=== PATIENT | male | born 1940 | race Caucasian/White ===

== ENCOUNTER 2017-11-10 22:19 | Inpatient (IN) | payer MEDICARE, OTHER ==
[~2017-11-10] VITALS: Ht 177.8 cm; Wt 81.2 kg
[2017-11-10 22:24] VITALS: BP 139/64
[2017-11-10] MEDS ORDERED: METFORMIN HCL500 MG PO (22:27)
[2017-11-10] MEDS ORDERED: LISINOPRIL10 MG PO (22:27)
[2017-11-10 23:04] LABS: ABSOLUTE LYMPHOCYTES 1.6 thou/uL (0.8-5.3); ABSOLUTE NEUTROPHILS 7.9 thou/uL (1.6-8.1); BASOPHILS 0.4 %; HEMATOCRIT 37.7 % (42.0-52.0); HEMOGLOBIN 12.4 gm/dL (14.0-18.0); LYMPHOCYTES 14.9 %; MCH 26.1 pg (26.0-34.0); MCHC 32.9 g/dL (28.0-37.0); MCV 79.3 fL (80.0-100.0); MONOCYTES 9.8 %; MPV 6.6 fl. (7.2-11.1); NUCLEATED RBCS 0 /100WBC; PLATELET COUNT* 208 thou/uL (150-400); POLYS 74.9 %; RBC 4.75 mil/uL (4.50-6.00); RDW-CV 16.1 % (10.5-14.5); WBC 10.5 thou/uL (4.0-11.0)
[2017-11-10 23:14] LABS: APTT 33.5 Seconds (25.0-31.3); INR 1.2
[2017-11-10 23:20] LABS: ANION GAP 5 mmol/L (7-16); BUN 21 mg/dL (7-18); CALCIUM 8.3 mg/dL (8.5-10.1); CHLORIDE 101 mmol/L (98-107); CO2 28 mmol/L (21-32); CREATININE 0.9 mg/dL (0.6-1.3); GLUCOSE 177 mg/dL (70-99); POTASSIUM 3.3 mmol/L (3.5-5.1); SODIUM 134 mmol/L (136-145)
[2017-11-10 23:27] LABS: ALBUMIN 3.3 g/dL (3.4-5.0); ALKALINE PHOSPHATASE 66 U/L (46-116); CK-MB MASS < 0.5 ng/mL (<0.5-3.6); NT-PRO BRAIN NAT PEPTIDE 3228 pg/mL (<300); SGOT 10 U/L (15-37); SGPT 17 U/L (30-65); TOTAL PROTEIN 6.9 g/dL (6.4-8.2); TROPONIN-I LEVEL <0.06 ng/mL (<0.06)
[2017-11-11] MEDS ORDERED: BENICAR40 MG PO (01:21)
[2017-11-11] MEDS ORDERED: ATENOLOL 25 MG25 M1 PO (01:22)
[2017-11-11] MEDS ORDERED: JANUVIA100 MG PO (01:22)
[2017-11-11] MEDS ORDERED: AMARYL4 MG PO (01:22)
--- NOTE | 2017-11-11 02:20 | NUR ---
PATIENT'S FAMILY CHANGED THEIR MIND ABOUT ORGAN DONATION AND AGREED TO [facility] [employer]. HOME NOTIFIED THAT PATIENT WILL BE UNABLE TO LEAVE AND NEEDED TO WAIT FOR [place] [employer] [facility]. 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
[2017-11-11 02:49] LABS: URINE BILIRUBIN NEGATIVE (Negative); URINE BLOOD 2+ (Negative); URINE CLARITY CLEAR; URINE COLOR YELLOW; URINE GLUCOSE-RANDOM NEGATIVE (Negative); URINE KETONES NEGATIVE (Negative); URINE LEUKOCYTES-REFLEX NEGATIVE (Negative); URINE NITRITE-REFLEX POSITIVE (Negative); URINE PROTEIN TRACE (Negative); URINE UROBILINOGEN 0.2 E.U./dl (0.2-1.0)
[2017-11-11 03:06] VITALS: BP 169/75
[2017-11-11 03:10] VITALS: BP 152/48
[2017-11-11 03:16] LABS: CASTS None Seen /LPF (None Seen); CRYSTALS None Seen /LPF (None Seen); MUCUS 0-3 Light strn/LPF (None Seen); SQUAMOUS 0-3 Few /LPF (0-3); URINE WBC-REFLEX 0-5 Rare /HPF (0-5)
[2017-11-11] MEDS ORDERED: CLARITIN10 MG PO (03:33)
--- NOTE | 2017-11-11 05:58 | NUR ---
PATIENT ARRIVED VIA CART FROM ED AROUND 254. PT A/OX4- FAMILY REPORTS PT STILL SLOW TO RESPOND TO QUESTIONS BUT BETTER THAN WHEN FIRST BROUGHT IN ED. NIH SCORE OF 1- SEE CHARTING. RIGHT EYE APPEARS DROOPY COMPARED TO LEFT BUT PT SEEMS TO HAVE POOR PERIPHERAL VISION LEFT UPPER FIELD. NEURO CONS FOR TODAY. TELE MONITOR IRREGULAR-APPEARS TO BE TRACING SB/1D/BIGEM PAC'S WITH HR 40-50S. BP STABLE. ON ROOM AIR. IV SALINE LOCKED. DENIES ANY PAIN. NPO SINCE ON ADMITTED. CALL LIGHT IN REACH, BEDALARM ON, AT BEDSIDE, WILL CONTINUE WITH PLAN OF CARE.
--- NOTE | 2017-11-11 06:47 | NUR ---
NEURO CHECK DONE AT THIS TIME, NO NEW FINDINGS. LEFT UPPER VIS FIELD APPEARS TO BE BETTER BUT STILL CAUSING PT SOME ISSUES. PT MORE ALERT AND TALKATIVE NOW. PATIENT VERY SURE THE BLUE LIGHT THERAPY HE RECEIVED CAUSED HIS SYMPTOMS. WILL CONTINUE WITH PLAN OF CARE.
[2017-11-11 07:09] LABS: ALBUMIN 3.3 g/dL (3.4-5.0); ALKALINE PHOSPHATASE 66 U/L (46-116); ANION GAP 12 mmol/L (7-16); BUN 21 mg/dL (7-18); CALCIUM 8.1 mg/dL (8.5-10.1); CHLORIDE 101 mmol/L (98-107); CHOLESTEROL 138 mg/dL (<200); CO2 25 mmol/L (21-32); CREATININE 0.8 mg/dL (0.6-1.3); GLUCOSE 164 mg/dL (70-99); HDL CHOLESTEROL 33 mg/dL (>40); LDL CHOLESTEROL 92 mg/dL (<100); POTASSIUM 3.5 mmol/L (3.5-5.1); SGOT 13 U/L (15-37); SGPT 16 U/L (30-65); SODIUM 138 mmol/L (136-145); TC:HDL 4.2 Ratio (Not establshd); TOTAL PROTEIN 6.4 g/dL (6.4-8.2); TRIGLYCERIDE 66 mg/dL (<150); VLDL 13 mg/dL (<40)
[2017-11-11 07:10] LABS: SERUM ASSESSMENT Clear
[2017-11-11 08:00] VITALS: BP 154/62
[2017-11-11 12:08] VITALS: BP 161/62
--- NOTE | 2017-11-11 13:24 | EKG ---
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1940 Requested By: Marquis Stokes Order Number: [id number] MD: Joce Rose Measurements Intervals [place] Rate: 52 P: -74 GA: 302 QRS: -53 QRSD: 100 T: -73 QT: 468 QTc: 436 Interpretive Statements Sinus rhythm Blocked premature atrial complexes Junctional escape Prolonged GA interval Left anterior fascicular block Abnormal R-wave progression, late transition LVH with secondary repolarization abnormality No previous ECG available for comparison Electronically Signed On 11-11-2017 13:24:04 DERMATOLOGIST by Joce Rose [email or web address] <ELECTRONICALLY SIGNED> By: Joce Rose MD, FACC 11/11/17 1324 2251 [id number] Joce Rose MD, FACC /EPI
[2017-11-11 13:57] LABS: ALBUMIN 3.4 g/dL (3.4-5.0); CALCIUM 8.7 mg/dL (8.5-10.1); CREATININE 0.8 mg/dL (0.6-1.3); POTASSIUM 3.3 mmol/L (3.5-5.1); TOTAL PROTEIN 7.2 g/dL (6.4-8.2)
[2017-11-11 15:23] VITALS: BP 168/90
[2017-11-11 16:07] LABS: GLYCOHEMOGLOBIN (HGB A1C) 6.8 % (4.8-5.6)
[2017-11-11 20:00] VITALS: BP 129/51
[2017-11-12] VITALS: BP 139/62
[2017-11-12 04:00] VITALS: BP 141/41
[2017-11-12 05:57] LABS: ABSOLUTE EOSINOPHILS 0.1 thou/uL (0.0-0.7); ABSOLUTE LYMPHOCYTES 2.3 thou/uL (0.8-5.3); ABSOLUTE MONOCYTES 0.8 thou/uL (0.0-1.2); ABSOLUTE NEUTROPHILS 3.3 thou/uL (1.6-8.1); BASOPHILS 0.7 %; EOSINOPHILS 1.3 %; HEMATOCRIT 37.3 % (42.0-52.0); HEMOGLOBIN 12.4 gm/dL (14.0-18.0); LYMPHOCYTES 35.4 %; MCH 26.3 pg (26.0-34.0); MCHC 33.4 g/dL (28.0-37.0); MCV 78.7 fL (80.0-100.0); MPV 7.3 fl. (7.2-11.1); NUCLEATED RBCS 0 /100WBC; PLATELET COUNT* 190 thou/uL (150-400); POLYS 50.6 %; RBC 4.73 mil/uL (4.50-6.00); WBC 6.6 thou/uL (4.0-11.0)
--- NOTE | 2017-11-12 06:12 | NUR ---
ASSUMED CARE AROUND 1930 LAST NIGHT. PT A/OX4, DROWSY BUT COMPLETELY AROUSABLE. SEE NIH CHARTING. 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 PT SLEPT MOST THE NIGHT. TELE MONITOR APPEARS TO BE TRACING 2ND DEG,TYPE 1, BRADYCARDIC WITH HR DOWN TO 35 TONIGHT WHILE PT SLEEPING, UP TO 50'S WHEN AWAKE. ON ROOM AIR. IVF INFUSING ORDERED. UP SBA. DENIES ANY PAIN. VSS. PT WARM AND DIAPHORETIC LAST NIGHT- AFEBRILE AND BLOOD SUGAR 139 AT THAT TIME. PT'S STATED SHE GAVE PATIENT HIS METFORMIN AND AMARYL YESTERDAY EVENING PRIOR TO THIS RN'S SHIFT. EDUCATED FAMILY ON NOT GIVING ANY OTHER MEDS TO PT AND THAT METFORMIN WAS SUPPOSED TO BE HELD D/T RECEIVING CONTRAST THE DAY BEFORE. CALL LIGHT IN REACH, WILL CONTINUE WITH PLAN OF CARE.
[2017-11-12 06:29] LABS: CALCIUM 8.3 mg/dL (8.5-10.1); CREATININE 0.7 mg/dL (0.6-1.3); POTASSIUM 3.4 mmol/L (3.5-5.1)
[2017-11-12 08:00] VITALS: BP 168/76
[2017-11-12 11:50] VITALS: BP 157/55
[2017-11-12 13:52] VITALS: BP 157/55
[2017-11-12] MEDS ORDERED: ASPIR 8181 MG PO (14:07)
[2017-11-12] MEDS ORDERED: CIPRO500 M1 PO (14:11)
--- NOTE | 2017-11-12 14:37 | NUR ---
PT DC HOME ACCOMPANIED BY AND DAUGHTER.PT AND FAMILY VERBALIZED UNDERSTANDING OF DC INSTRUCTIONS INCLUDING F/U CARE AND MEDICATION MANAGEMENT. IV AND FLASH WELDER REMOVED PRIOR TO DISCHARGE. ALL PERSONAL BELONGINGS AND PRESCRIPTIONS TAKEN AT DISCHARGE. PT TRANSPORTED VIA PRIVATE VEHICLE DRIVEN BY DAUGHTER.
--- NOTE | 2017-11-16 11:53 | CON ---
[address] [address] CONSULTATION Name: CHIDIVONNIE Edinson Room: [address] IN M.R.#: [id number] Admission: 11/11/17 Attend Phys: Jono Little MD Discharge: 11/12/17 Date of : 42 Report #: [id number] THIS REPORT FOR: //name// CC: Jono Fagan [facility] DATE OF SERVICE: 11/11/2017 HISTORY OF PRESENT ILLNESS: This is a 77-year-old male patient who was evaluated by me for altered mental status. The patient's history is complicated. He was getting some therapy for the skin cancer and he indicated that he got heated up and had some headache. Family noticed altered mental status after that. The patient is clinically confused. He has no history of trauma. REVIEW OF SYSTEMS: Indicate that this patient does have diabetes and he had no prior history of stroke. He does have a history of coronary artery disease. He does have a history of hypertension. He has a history of cancer of the skin, is being followed by a shipwright supervisor. His vision and hearing look adequate and he is not complaining of any chest pain, respiratory difficulty. He does have some bacteria in the urine as well as some blood there. He is not complaining of any GI, musculoskeletal, constitutional, dermatological, hematological, psychiatric, throat, allergic symptoms. He had prior history of doing reasonably well. 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 PAST MEDICAL HISTORY: Negative for any stroke. FAMILY HISTORY: Negative for early age stroke. SOCIAL HISTORY: The patient is and provides most of the history. He does not abuse alcohol. PHYSICAL EXAMINATION: Indicate he is alert. He can tell me what month it is, but he could not tell me what date it is. He knew which hospital he was in and can name the president, but his memory overall looks poor and he still looks confused because he says a few things, but then keeps repeating those things. Cranial nerve examination 2-12 looks unremarkable. Strength, sensation, reflexes and tone look symmetrical. He has dermatological lesions, which is being treated by shipwright supervisor. He has no cerebellar sign or papilledema. He is a very well developed individual who does not have any dysmorphic features of eyes, ears and face. His vision and hearing look adequate. His pulses are somewhat difficult to feel, but it does not look like he has any vascular insufficiency, has no edema, cyanosis or jaundice. His cardiac examination is unremarkable. There does not appear to be a murmur. Respiratory examination showed no respiratory difficulty or rhonchi. His blood pressure is 152/48, respiration is 16, pulse is 58, temperature is 98.2. [place] [address] CONSULTATION Name: VONNIE MURILLO Room: [address]#: [id number] Admission: 11/11/17 Attend Phys: Jono Little MD Discharge: 11/12/17 Date of : 42 Report #: [id number] LABORATORY DATA: Indicate a white count of 10.5. His sodium was trace low, but is normal now. His GFR is normal. He did have a CT scan of the head and that was reviewed and does show some carotid disease, but nothing which can explain the patient's symptoms. IMPRESSION: Confusion for which no apparent cause is there at the moment. He does have some bacteria in the urine, but it is unlikely that is the sole cause of the patient's symptom. He did get expose to blue light therapy and he blames for that; we do not have any shipwright supervisor and I do not know whether that can cause this or not. 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 Because of that the possibility of cerebrovascular accident needs to be excluded. I do not think there is any evidence for any central nervous system infection in this patient. RECOMMENDATIONS: 1. His MRI is being scheduled and we will check what does that show. The patient initially said he is claustrophobic, but then he said he will do it. 2. I will do an EEG. 3. Rest of the workup will depend upon what this patient's MRI and EEG show. We will follow the patient along with you. Thank you very much for this referral. <ELECTRONICALLY SIGNED> By: Von Laws MD 11/16/17 1153 0930 [id number] Laws MD /nt
--- NOTE | 2017-11-16 11:53 | EEG ---
[address] [address] EEG STUDY REPORT Name: VONNIE MURILLO Room: [address] IN M.R.#: [id number] Admission: 11/11/17 Attend Phys: Jono Little MD Discharge: 11/12/17 Date of : 42 Report #: [id number] THIS REPORT FOR: //name// CC: Jono Fagan [facility] DATE OF SERVICE: 11/11/2017 This patient is being evaluated for altered mental status. The EEG was done by placing the electrodes by standard 10-20 system of electrode placement. Both referential and sequential montages were used for recording. Background activity in this patient's EEG is about 10 Hz and 40 microvolts. It is a symmetrical activity. The patient went to sleep that is associated with bilaterally symmetrical sleep spindle and vertex sharp waves. Photic stimulation is unremarkable. Throughout the record, no active epileptiform activity was noticed. IMPRESSION: This patient's EEG is unremarkable. Thank you very much for this referral. <ELECTRONICALLY SIGNED> By: Von Laws MD 11/16/17 1153 1754 [id number] Laws MD /nt
== END 2017-11-12 14:45 | disposition home or self-care (01) | DRG 606 ==
LOC: M.ERS 22:19 → M.2W 11-11 01:48 → M.TBA-ER 11-11 01:48 → M.2W 11-11 02:56
PROVIDERS: Emergency Medicine Emergency Medical Services; ADMIT Internal Medicine
DX: L59.9 Disorder of the skin and subcutaneous tissue related to radiation, unspecified (principal); G93.40 Encephalopathy, unspecified; N39.0 Urinary tract infection, site not specified; I50.32 Chronic diastolic (congestive) heart failure; R65.10 Systemic inflammatory response syndrome (SIRS) of non-infectious origin without acute organ dysfunction; I10 Essential (primary) hypertension; E11.9 Type 2 diabetes mellitus without complications; E86.0 Dehydration; C44.90 Unspecified malignant neoplasm of skin, unspecified; Z79.82 Long term (current) use of aspirin; Z79.899 Other long term (current) drug therapy; Z87.891 Personal history of nicotine dependence; Z88.0 Allergy status to penicillin; Z95.1 Presence of aortocoronary bypass graft

== ENCOUNTER 2018-08-01 13:24 | Emergency (ER) | payer MEDICARE, OTHER ==
[~2018-08-01] VITALS: Ht 177.8 cm; Wt 83.9 kg
[~2018-08-01 13:24] MED LIST: AMARYL4 MG PO; ASPIR 8181 MG PO; ATENOLOL 25 MG25 M1 PO; BENICAR40 MG PO; CIPRO500 M1 PO; CLARITIN10 MG PO; JANUVIA100 MG PO; LISINOPRIL10 MG PO; METFORMIN HCL500 MG PO
[2018-08-01] MEDS ORDERED: HYDROCHLOROTHIA25 M2 PO (13:44)
[2018-08-01] MEDS ORDERED: LIPITOR40 MG PO (14:02)
[2018-08-01] MEDS ORDERED: NORVASC10 MG PO (14:02)
[2018-08-01] MEDS ORDERED: KEFLEX500 M1 PO (14:36)
[2018-08-01] MEDS ORDERED: CENTANY30 GM TOP (14:38)
[2018-08-01 14:56] VITALS: BP 158/49
== END 2018-08-01 14:57 | disposition home or self-care (01) ==
LOC: M.ERS 13:24
DX: E11.621 Type 2 diabetes mellitus with foot ulcer (principal); L97.528 Non-pressure chronic ulcer of other part of left foot with other specified severity; I10 Essential (primary) hypertension; E11.9 Type 2 diabetes mellitus without complications; Z88.0 Allergy status to penicillin; Z95.1 Presence of aortocoronary bypass graft

== ENCOUNTER → 2018-08-03 | Outpatient (CLI) | payer MEDICARE, OTHER ==
[~2018-08-03] MED LIST changes: +CENTANY30 GM TOP; +HYDROCHLOROTHIA25 M2 PO; +KEFLEX500 M1 PO; +LIPITOR40 MG PO; +NORVASC10 MG PO
== END ==
LOC: M.WC 08:38
DX: E11.621 Type 2 diabetes mellitus with foot ulcer (principal); L97.522 Non-pressure chronic ulcer of other part of left foot with fat layer exposed; L84 Corns and callosities; E78.2 Mixed hyperlipidemia; I25.10 Atherosclerotic heart disease of native coronary artery without angina pectoris; I10 Essential (primary) hypertension; Z87.891 Personal history of nicotine dependence

== ENCOUNTER → 2018-08-10 | Outpatient (CLI) | payer MEDICARE, OTHER ==
[2018-08-10 10:09] LABS: ABSOLUTE LYMPHOCYTES 1.3 thou/uL (0.8-5.3); ABSOLUTE MONOCYTES 0.5 thou/uL (0.0-1.2); BASOPHILS 0.4 %; EOSINOPHILS 0.5 %; HEMATOCRIT 40.2 % (42.0-52.0); HEMOGLOBIN 13.6 gm/dL (14.0-18.0); LYMPHOCYTES 16.5 %; MCH 27.6 pg (26.0-34.0); MCHC 33.8 g/dL (28.0-37.0); MCV 81.7 fL (80.0-100.0); MONOCYTES 6.8 %; MPV 7.1 fl. (7.2-11.1); NUCLEATED RBCS 0 /100WBC; PLATELET COUNT* 237 thou/uL (150-400); POLYS 75.8 %; RBC 4.93 mil/uL (4.50-6.00); RDW-CV 14.3 % (10.5-14.5); WBC 7.9 thou/uL (4.0-11.0)
[2018-08-10 10:23] LABS: CALCIUM 9.9 mg/dL (8.5-10.1); CREATININE 0.8 mg/dL (0.6-1.3)
[2018-08-10 11:20] LABS: ESR (SEDRATE) 22 mm/hr (0-20)
[2018-08-10 21:08] LABS: GLYCOHEMOGLOBIN (HGB A1C) 7.3 % (4.8-5.6)
== END ==
LOC: M.WC 04:48
PROVIDERS: Family Medicine
DX: E11.621 Type 2 diabetes mellitus with foot ulcer (principal); L97.522 Non-pressure chronic ulcer of other part of left foot with fat layer exposed; E78.2 Mixed hyperlipidemia; I25.10 Atherosclerotic heart disease of native coronary artery without angina pectoris; I10 Essential (primary) hypertension; Z87.891 Personal history of nicotine dependence

== ENCOUNTER → 2018-08-13 | Outpatient (CLI) | payer MEDICARE, OTHER | LOC: M.MRI 14:21 | DX: S91.102A Unspecified open wound of left great toe without damage to nail, initial encounter (principal); E11.621 Type 2 diabetes mellitus with foot ulcer; M19.072 Primary osteoarthritis, left ankle and foot; X58.XXXA Exposure to other specified factors, initial encounter; Y93.89 Activity, other specified; Y92.89 Other specified places as the place of occurrence of the external cause; Y99.8 Other external cause status ==

== ENCOUNTER → 2018-08-24 | Outpatient (CLI) | payer MEDICARE, OTHER | LOC: M.WC 04:34 | DX: E11.621 Type 2 diabetes mellitus with foot ulcer (principal); L97.522 Non-pressure chronic ulcer of other part of left foot with fat layer exposed; L84 Corns and callosities; E78.2 Mixed hyperlipidemia; I10 Essential (primary) hypertension; I25.10 Atherosclerotic heart disease of native coronary artery without angina pectoris; Z87.891 Personal history of nicotine dependence ==

== ENCOUNTER → 2018-08-31 | Outpatient (CLI) | payer MEDICARE, OTHER | LOC: M.WC 04:33 | DX: E11.621 Type 2 diabetes mellitus with foot ulcer (principal); L97.522 Non-pressure chronic ulcer of other part of left foot with fat layer exposed; L84 Corns and callosities; E78.2 Mixed hyperlipidemia; I25.10 Atherosclerotic heart disease of native coronary artery without angina pectoris; I10 Essential (primary) hypertension; Z87.891 Personal history of nicotine dependence ==

== ENCOUNTER → 2018-09-07 | Outpatient (CLI) | payer MEDICARE, OTHER | LOC: M.WC 04:26 | DX: E11.621 Type 2 diabetes mellitus with foot ulcer (principal); L97.522 Non-pressure chronic ulcer of other part of left foot with fat layer exposed; L84 Corns and callosities; E78.2 Mixed hyperlipidemia; I10 Essential (primary) hypertension; I25.10 Atherosclerotic heart disease of native coronary artery without angina pectoris; F41.9 Anxiety disorder, unspecified; F32.9 Major depressive disorder, single episode, unspecified; Z87.891 Personal history of nicotine dependence ==

== ENCOUNTER → 2018-09-14 | Outpatient (CLI) | payer MEDICARE, OTHER | LOC: M.WC 03:49 | DX: E11.621 Type 2 diabetes mellitus with foot ulcer (principal); L97.522 Non-pressure chronic ulcer of other part of left foot with fat layer exposed; L84 Corns and callosities; E78.2 Mixed hyperlipidemia; I25.10 Atherosclerotic heart disease of native coronary artery without angina pectoris; I10 Essential (primary) hypertension; Z87.891 Personal history of nicotine dependence ==

== ENCOUNTER → 2018-09-21 | Outpatient (CLI) | payer MEDICARE, OTHER | LOC: M.WC 04:36 | DX: E11.621 Type 2 diabetes mellitus with foot ulcer (principal); L97.522 Non-pressure chronic ulcer of other part of left foot with fat layer exposed; L84 Corns and callosities; E78.2 Mixed hyperlipidemia; I10 Essential (primary) hypertension; I25.10 Atherosclerotic heart disease of native coronary artery without angina pectoris; Z87.891 Personal history of nicotine dependence ==

== ENCOUNTER → 2018-09-28 | Outpatient (CLI) | payer MEDICARE, OTHER ==
[2018-09-28 09:27] LABS: ABSOLUTE EOSINOPHILS 0.1 thou/uL (0.0-0.7); ABSOLUTE LYMPHOCYTES 1.7 thou/uL (0.8-5.3); ABSOLUTE MONOCYTES 0.7 thou/uL (0.0-1.2); ABSOLUTE NEUTROPHILS 5.8 thou/uL (1.6-8.1); BASOPHILS 0.3 %; HEMATOCRIT 38.2 % (42.0-52.0); LYMPHOCYTES 20.3 %; MCH 27.5 pg (26.0-34.0); MCHC 33.9 g/dL (28.0-37.0); MCV 80.9 fL (80.0-100.0); NUCLEATED RBCS 0 /100WBC; PLATELET COUNT* 209 thou/uL (150-400); POLYS 70.4 %; RBC 4.73 mil/uL (4.50-6.00); RDW-CV 14.6 % (10.5-14.5); WBC 8.3 thou/uL (4.0-11.0)
[2018-09-28 10:42] LABS: ESR (SEDRATE) 32 mm/hr (0-20)
== END ==
LOC: M.WC 08:34
PROVIDERS: Family Medicine
DX: E11.621 Type 2 diabetes mellitus with foot ulcer (principal); L97.522 Non-pressure chronic ulcer of other part of left foot with fat layer exposed; L84 Corns and callosities; E78.2 Mixed hyperlipidemia; I10 Essential (primary) hypertension; I25.10 Atherosclerotic heart disease of native coronary artery without angina pectoris; Z87.891 Personal history of nicotine dependence

== ENCOUNTER → 2018-10-12 | Outpatient (CLI) | payer MEDICARE, OTHER | LOC: M.WC 10-05 04:43 | DX: E11.621 Type 2 diabetes mellitus with foot ulcer (principal); L97.528 Non-pressure chronic ulcer of other part of left foot with other specified severity; L84 Corns and callosities; E78.2 Mixed hyperlipidemia; I10 Essential (primary) hypertension; I25.10 Atherosclerotic heart disease of native coronary artery without angina pectoris; Z87.891 Personal history of nicotine dependence ==